=== PATIENT | female | born 1930 | race Caucasian/White ===

== ENCOUNTER → 2016-10-15 | Outpatient (CLI) | payer MEDICARE ==
[~2016-10-15] MED LIST: CALC500T55 PO; GABA300S PO; HC2.5C30 RC; HYDR-3702 PO; IBUP100T47 PO; LEVO25TA2 PO; LEVO25TA42 PO; MULT-954 PO; OXYC1TAB87 PO; WARF6TAB3 PO
== END ==
LOC: LAB 09:37
PROVIDERS: ATTEND Family Medicine
DX: Z51.81 Encounter for therapeutic drug level monitoring (principal); Z79.01 Long term (current) use of anticoagulants
CPT/HCPCS: 36415; 85610

== ENCOUNTER → 2016-11-08 | Emergency (ER) | payer MEDICARE ==
[~2016-11-08] VITALS: Ht 152.4 cm; Wt 64.0 kg
[~2016-11-08] MED LIST changes: -CALC500T55 PO; -GABA300S PO; -HC2.5C30 RC; -HYDR-3702 PO; -IBUP100T47 PO; -LEVO25TA2 PO; -LEVO25TA42 PO; +LIDOCAINE JELLY 2% (XYLOCAINE) 30 ML TUBE TOP ONE; -MULT-954 PO; -OXYC1TAB87 PO; -WARF6TAB3 PO
--- NOTE | 2016-11-08 14:56 | NUR ---
Saline enema given. Retained x5 minutes. Up to toilet.
--- NOTE | 2016-11-08 15:25 | NUR ---
Unable to pass any stool after enema held for 5 minutes.
--- NOTE | 2016-11-08 15:34 | NUR ---
Manually removed moderate amount of soft brown stool with several small pieces of harder stool. Dr. Tineo removed small amount of soft stool.
[2016-11-08 15:59] VITALS: BP 111/80
== END | disposition home or self-care (01) ==
LOC: ED 14:19
DX: K56.41 Fecal impaction (principal)
CPT/HCPCS: 99284; A9270; 99283

== ENCOUNTER → 2016-11-12 | Outpatient (CLI) | payer MEDICARE | LOC: LAB 09:07 | PROVIDERS: ATTEND Family Medicine | DX: Z51.81 Encounter for therapeutic drug level monitoring (principal); Z79.01 Long term (current) use of anticoagulants | CPT/HCPCS: 36415; 85610 ==

== ENCOUNTER → 2016-12-04 | Outpatient (CLI) | payer MEDICARE | LOC: LAB 11:23 | PROVIDERS: ATTEND Family Medicine | DX: Z51.81 Encounter for therapeutic drug level monitoring (principal); Z79.01 Long term (current) use of anticoagulants | CPT/HCPCS: 36415; 85610 ==

== ENCOUNTER → 2016-12-31 | Outpatient (CLI) | payer MEDICARE ==
[~2016-12-31] MED LIST changes: +CALC500T55 PO; +GABA300S PO; +HC2.5C30 RC; +HYDR-3702 PO; +IBUP100T47 PO; +LEVO25TA2 PO; +LEVO25TA42 PO; -LIDOCAINE JELLY 2% (XYLOCAINE) 30 ML TUBE TOP ONE; +MULT-954 PO; +OXYC1TAB87 PO; +WARF6TAB3 PO
== END ==
LOC: LAB 08:45
PROVIDERS: ATTEND Family Medicine
DX: Z51.81 Encounter for therapeutic drug level monitoring (principal); Z79.01 Long term (current) use of anticoagulants
CPT/HCPCS: 36415; 85610

== ENCOUNTER → 2017-01-28 | Outpatient (CLI) | payer MEDICARE ==
[2017-01-28 09:16] LABS: BASOPHILS % (AUTO) 1 % (0-2); EOSINOPHILS # (AUTO) 0.3 10^3uL; EOSINOPHILS % (AUTO) 3 % (0-4); LYMPHOCYTES # (AUTO) 3.6 X10^3; MEAN CORPUSCULAR HEMOGLOBIN 30.4 PG (26.0-34.0); MEAN CORPUSCULAR HGB CONC 32.6 g/dL (31.0-37.0); MEAN CORPUSCULAR VOLUME 93 FL (80-100); MEAN PLATELET VOLUME 9.3 FL (6.0-9.5); MONOCYTES # (AUTO) 1.1 X10^3; MONOCYTES % (AUTO) 12 % (3-11); NEUTROPHILS # (AUTO) 4.1 X10^3; NEUTROPHILS % (AUTO) 45 % (51-67); PLATELET COUNT 287 10^3uL (150-450); WHITE BLOOD COUNT 9.07 10^3uL (4.0-11.0)
[2017-01-28 09:24] LABS: BILIRUBIN,URINE Negative (Negative); CLARITY,URINE Clear; COLOR,URINE Yellow; GLUCOSE, URINE (UA) Negative (Negative); LEUKOCYTE ESTERASE ,URINE Negative (Negative); UROBILINOGEN,URINE 0.2 mg/dL (0.2-1.0)
[2017-01-28 09:31] LABS: ALBUMIN 4.1 g/dL (3.4-5.0); ANION GAP 15.8 MEQ/L (3-15); CALCULATED IONIZED CALCIUM 4.1 mg/dL (3.8-4.6); TOTAL PROTEIN 7.4 g/dL (6.4-8.5)
== END ==
LOC: LAB 08:56
PROVIDERS: ATTEND Family Medicine
DX: R42 Dizziness and giddiness (principal); E03.8 Other specified hypothyroidism
CPT/HCPCS: 36415; 80053; 81003; 84443; 85025

== ENCOUNTER 2017-01-31 09:42 | Outpatient (RCR) | payer MEDICARE | END 2017-03-05 19:19 | disposition home or self-care (01) | LOC: LAB 09:42 | PROVIDERS: ATTEND Family Medicine | DX: Z51.81 Encounter for therapeutic drug level monitoring (principal); Z79.01 Long term (current) use of anticoagulants | CPT/HCPCS: 36415; 85610 ==

== ENCOUNTER → 2017-02-25 | Outpatient (CLI) | payer MEDICARE | LOC: LAB 10:04 | PROVIDERS: ATTEND Family Medicine | DX: Z51.81 Encounter for therapeutic drug level monitoring (principal); Z79.01 Long term (current) use of anticoagulants | CPT/HCPCS: 36415; 85610 ==